=== PATIENT | female | born 1980 | race Two or more races ===

== ENCOUNTER 2017-03-14 19:56 | Inpatient (IN) ==
[2017-03-14] MEDS ORDERED: PENICILLIN G BENZATHINE 1,200,000 UNIT/2 ML SYRINGE IM STA (20:42)
[2017-03-14] MEDS ORDERED: SODIUM CHLORIDE 0.9% 1,000 ML IV STA ×2 (20:42→22:30)
[2017-03-14] MEDS ORDERED: DEXAMETHASONE 4 MG/1 ML VIAL IV STA (20:42)
[2017-03-14] MEDS ORDERED: IBUPROFEN 800 MG TABLET PO STA (20:42)
[2017-03-14] MEDS ORDERED: IBUPROFEN 800 MG TABLET ONE (20:52)
[2017-03-14] MEDS ORDERED: DEXAMETHASONE 10 MG/1 ML VIAL ONE (20:52)
[2017-03-14] MEDS ORDERED: PENICILLIN G BENZATHINE 1,200,000 UNIT/2 ML SYRINGE IM ONE (20:52)
[2017-03-14 20:56] LABS: Basophils % 0.2 % (0.0-0.8); Hematocrit 39.8 VOL% (35.7-47.0); Hemoglobin 13.8 GM/DL (12.0-16.0); Immature Granulocytes % 0.5 %; Immature Granulocytes Absolute 0.07 #; Lymphocytes # 0.9 10*3/uL (1.4-4.0); Mean Corpuscular HGB Conc 34.7 GM/DL (32-36); Mean Corpuscular Hemoglobin 30 PG (27-34); Mean Corpuscular Volume 86.1 FL (87-102); Mean Platelet Volume 10.9 FL (9.6-12.0); Monocytes # 0.7 10*3/uL (0.11-0.8); Monocytes % 4.9 % (1.7-12.7); Neutrophils # 12.7 10*3/uL (1.4-7.4); Neutrophils % 88.4 % (38.7-73.9); Platelet Count 192 T/CUMM (130-400); Red Blood Count 4.62 MC/CUMM (3.8-5.5); Red Cell Distribution Width 13.3 % (9.3-17.3); White Blood Count 14.4 T/CUMM (4-12)
[2017-03-14 21:14] LABS: Apearance,Urine CLEAR (Clear); Bilirubin,Urine Negative (Negative); Blood, Urine Moderate mg/dL (Negative); Glucose,Urine (UA) Negative (Negative); Ketones,Urine 5 mg/dL (Negative); Mucus,Urine Occasional /LPF (Occasional); Nitrite,Urine Negative (Negative); Protein,Urine Negative; RBC,Urine 17 /HPF (0-4); Squamous Epithelial Cell,Urine Occasional /HPF (0-10); Urine Color Yellow (Yellow); Urine Specific Gravity 1.045 (1.001-1.035); WBC,Urine 2 /HPF (0-6)
[2017-03-14 21:24] LABS: Albumin 3.6 G/DL (3.4-5.0); Bilirubin,Total 1.5 MG/DL (0.2-1.0); Calcium 8.7 MG/DL (8.5-10.1); Osmolality,Calculated 264.5 MOS/KG (273-304); Potassium 3.9 MMOL/L (3.5-5.1); Total Protein 7.5 G/DL (6.4-8.3)
[2017-03-14 22:02] LABS: Sedimentation Rate-Westergren 33 MM/HR (0-20)
[2017-03-14] MEDS ORDERED: ONDANSETRON 4 MG/2 ML VIAL ONE (22:25)
[2017-03-14] MEDS ORDERED: ACETAMINOPHEN 500 MG TABLET ONE (22:30)
[2017-03-14] MEDS ORDERED: ACETAMINOPHEN 500 MG TABLET PO STA (22:30)
[2017-03-15] MEDS ORDERED: ACETAMINOPHEN 325 MG TABLET PO PRN (01:35)
[2017-03-15] MEDS ORDERED: ONDANSETRON 4 MG/2 ML VIAL IV PRN (01:35)
[2017-03-15] MEDS: SODIUM CHLORIDE 0.9% 1,000 ML IV SCH ×5 (04:15→21:33)
[2017-03-15 07:28] LABS: Basophils % 0.1 % (0.0-0.8); Hematocrit 38.8 VOL% (35.7-47.0); Hemoglobin 13.3 GM/DL (12.0-16.0); Immature Granulocytes % 0.4 %; Immature Granulocytes Absolute 0.06 #; Lymphocytes # 0.6 10*3/uL (1.4-4.0); Lymphocytes % 3.9 % (21.3-54.2); Mean Corpuscular HGB Conc 34.3 GM/DL (32-36); Mean Corpuscular Hemoglobin 30 PG (27-34); Mean Platelet Volume 11.5 FL (9.6-12.0); Monocytes # 0.2 10*3/uL (0.11-0.8); Neutrophils # 14.6 10*3/uL (1.4-7.4); Neutrophils % 94.6 % (38.7-73.9); Platelet Count 183 T/CUMM (130-400); Red Blood Count 4.41 MC/CUMM (3.8-5.5); Red Cell Distribution Width 13.5 % (9.3-17.3); White Blood Count 15.5 T/CUMM (4-12)
[2017-03-15 08:16] LABS: Band Neutrophils 19 % (0-10); Calcium 8.9 MG/DL (8.5-10.1); Hypochromasia Slight; Lymphocytes 5 % (20-55); Osmolality,Calculated 283.3 MOS/KG (273-304); Platelet Estimate Adequate; Potassium 4.1 MMOL/L (3.5-5.1); Segmented Neutrophils 76 % (50-85); Total Cells Counted 100
[2017-03-15] MEDS: PANTOPRAZOLE 40 MG TABLET PO SCH (09:38)
[2017-03-15] MEDS: AMOXICILLIN/CLAV 875 MG TABLET PO SCH ×2 (12:48→21:24)
[2017-03-15] MEDS: LACTOBACILLUS ACIDOPHILUS/BULGARICUS CAPLET PO SCH ×2 (12:48→21:24)
[2017-03-15] MEDS: DEXAMETHASONE 4 MG/1 ML VIAL IV SCH ×2 (12:50→21:24)
[2017-03-16] MEDS: DEXAMETHASONE 4 MG/1 ML VIAL IV SCH ×3 (03:48→20:04)
[2017-03-16] MEDS: SODIUM CHLORIDE 0.9% 1,000 ML IV SCH ×3 (06:02→17:04)
[2017-03-16] MEDS: AMOXICILLIN/CLAV 875 MG TABLET PO SCH ×2 (08:18→20:04)
[2017-03-16] MEDS: LACTOBACILLUS ACIDOPHILUS/BULGARICUS CAPLET PO SCH ×2 (08:19→20:04)
[2017-03-16] MEDS: PANTOPRAZOLE 40 MG TABLET PO SCH (08:19)
[2017-03-17] MEDS: SODIUM CHLORIDE 0.9% 1,000 ML IV SCH ×3 (03:03→20:31)
[2017-03-17] MEDS: DEXAMETHASONE 4 MG/1 ML VIAL IV SCH (03:05)
[2017-03-17] MEDS ORDERED: ALBUTEROL/IPRATROPIUM 3 ML NEB RESP TX PRN (05:11)
[2017-03-17] MEDS ORDERED: PHENOL 1.4% THROAT SPRAY 177 ML BOTTLE PO PRN (05:52)
[2017-03-17] MEDS ORDERED: LORazepam 2 MG/1 ML VIAL IV ONE (07:31)
[2017-03-17] MEDS ORDERED: methylPREDNISolone 4 MG TABLET PO SCH (08:00)
[2017-03-17] MEDS: DIAZEPAM 5 MG TABLET PO SCH ×2 (08:20→20:33)
[2017-03-17] MEDS: AMOXICILLIN/CLAV 875 MG TABLET PO SCH ×2 (08:20→20:32)
[2017-03-17] MEDS: LACTOBACILLUS ACIDOPHILUS/BULGARICUS CAPLET PO SCH ×2 (08:20→20:33)
[2017-03-17] MEDS: PANTOPRAZOLE 40 MG TABLET PO SCH (08:20)
[2017-03-17] MEDS: methylPREDNISolone 4 MG TABLET PO SCH ×4 (09:41→20:32)
[2017-03-18] MEDS: SODIUM CHLORIDE 0.9% 1,000 ML IV SCH ×2 (03:12→04:47)
[2017-03-18 08:12] VITALS: BP 120/79
[2017-03-18] MEDS: methylPREDNISolone 4 MG TABLET PO SCH (09:49)
[2017-03-18] MEDS: DIAZEPAM 5 MG TABLET PO SCH (09:49)
[2017-03-18] MEDS: PANTOPRAZOLE 40 MG TABLET PO SCH (09:49)
[2017-03-18] MEDS: LACTOBACILLUS ACIDOPHILUS/BULGARICUS CAPLET PO SCH (09:49)
[2017-03-18] MEDS: AMOXICILLIN/CLAV 875 MG TABLET PO SCH (09:49)
== END 2017-03-18 10:25 | disposition home or self-care (01) | DRG 153 ==
LOC: N.ED 19:56 → N.EDINP 19:56 → N.3E 03-15 02:31 → N.SDSINP 03-15 02:31 → N.3E 03-15 02:44 → N.SDSINP 03-15 02:44 → UNDODISOB 03-18 10:25
PROVIDERS: ADMIT Internal Medicine Cardiovascular Disease; ATTEND Internal Medicine Cardiovascular Disease